=== PATIENT | male | born 1985 | race Caucasian/White ===

== ENCOUNTER 2018-02-28 05:11 | Emergency (ER) | payer BC ==
--- NOTE | 2018-02-28 06:13 | EDM.PDOC ---
ED HPI GENERAL MEDICAL PROBLEM - General Chief Complaint: Lower Extremity Injury/Pain Stated Complaint: SWOLLEN LEFT LEG Time Seen by Provider: 02/28/18 06:08 - History of Present Illness INITIAL COMMENTS - FREE TEXT/NARRATIVE: HISTORY AND PHYSICAL: History of present illness: Patient 32-year-old white male with history of chronic left knee pain who presents now with pain and swelling of his left knee but no fever no chills no other complaints. Review of systems: As per history of present illness and below otherwise all systems reviewed and negative. Past medical history: As per history of present illness and as reviewed below otherwise noncontributory. Surgical history: As per history of present illness and as reviewed below otherwise noncontributory. Social history: No reported history of drug or alcohol abuse. Family history: As per history of present illness and as reviewed below otherwise noncontributory. Physical exam: HEENT: Atraumatic, normocephalic, pupils reactive, negative for conjunctival pallor or scleral icterus, mucous membranes moist, throat clear, neck supple, nontender, trachea midline. Lungs: Clear to auscultation, breath sounds equal bilaterally, chest nontender. Heart: S1S2, regular, negative for clicks, rubs, or JVD. Abdomen: Soft, nondistended, nontender. Negative for masses or hepatosplenomegaly. Negative for costovertebral tenderness. Pelvis: Stable nontender. Genitourinary: Deferred. Rectal: Deferred. Extremities: Left knee is suprapatellar effusion noted joints grossly stable is no significant erythema no crepitation no point tenderness. Neuro: Awake, alert, oriented. Cranial nerves II through XII unremarkable. Cerebellum unremarkable. Motor and sensory unremarkable throughout. Exam nonfocal. Diagnostics: Chest x-ray left knee CBC uric acid Therapeutics: [place] wrap Impression: #1 left knee effusion Definitive disposition and diagnosis as appropriate pending reevaluation and review of above. left knee Pain Score (Numeric/FACES): 4 - Related Data Allergies Allergy/AdvReac Type Severity Reaction Status Date / Time No Known Allergies Allergy Verified 02/28/18 05:24 Home Meds: Home Meds . [No Known Home Meds] 02/28/18 [History] Past Medical History HEENT History: Reports: None Cardiovascular History: Reports: None Respiratory History: Reports: None Gastrointestinal History: Reports: None Genitourinary History: Reports: None Musculoskeletal History: Reports: Arthritis Neurological History: Reports: None Psychiatric History: Reports: None Endocrine/Metabolic History: Reports: None Hematologic History: Reports: None Oncologic (Cancer) History: Reports: None Dermatologic History: Reports: None - Infectious Disease History Infectious Disease History: Reports: None - Past Surgical History HEENT Surgical History: Reports: None Cardiovascular Surgical History: Reports: None Male Surgical History: Reports: None Musculoskeletal Surgical History: Reports: None Social & Family History - Family History Family Medical History: Noncontributory - Tobacco Use Smoking Status *Q: Current Every Day Smoker Years of Tobacco use: 7 Packs/Tins Daily: 1 - Recreational Drug Use Recreational Drug Use: No Review of Systems - Review of Systems Review Of Systems: ROS reveals no pertinent complaints other than HPI. ED EXAM, GENERAL - Physical Exam Exam: See Below (Dictation) Course - Vital Signs Last Recorded V/S: Last Vital Signs Temp 36.1 C 02/28/18 05:24 Pulse 80 02/28/18 05:24 Resp 16 02/28/18 05:24 BP 117/91 H 02/28/18 05:24 Pulse Ox 97 02/28/18 05:24 - Orders/Labs/Meds Orders: Active Orders 24 hr Category Date Time Status Knee 3V Lt [CR] Stat Exams 02/28/18 05:25 Taken URIC ACID [CHEM] Stat Lab 02/28/18 05:36 Received Labs: Laboratory Tests 02/28/18 Range/Units 05:36 WBC 8.36 (4.0-11.0) K/uL RBC 5.24 (4.50-5.90) M/uL Hgb 16.1 (13.0-17.0) g/dL Hct 45.7 (38.0-50.0) % MCV 87.2 (80.0-98.0) fL MCH 30.7 (27.0-32.0) pg MCHC 35.2 (31.0-37.0) g/dL RDW Std Deviation 40.2 (28.0-62.0) fl RDW Coeff of Merna 13 (11.0-15.0) % Plt Count 271 (150-400) K/uL MPV 9.20 (7.40-12.00) fL Neut % (Auto) 60.5 (48.0-80.0) % Lymph % (Auto) 29.8 (16.0-40.0) % Bates % (Auto) 8.0 (0.0-15.0) % Eos % (Auto) 1.3 (0.0-7.0) % Baso % (Auto) 0.4 (0.0-1.5) % Neut # (Auto) 5.1 (1.4-5.7) K/uL Lymph # (Auto) 2.5 H (0.6-2.4) K/uL Bates # (Auto) 0.7 (0.0-0.8) K/uL Eos # (Auto) 0.1 (0.0-0.7) K/uL Baso # (Auto) 0.0 (0.0-0.1) K/uL Nucleated RBC % 0.0 /100WBC Nucleated RBCs # 0 K/uL Departure - Departure Time of Disposition: 06:12 Disposition: Home, Self-Care 01 Condition: Good Clinical Impression: Knee effusion, left - Discharge Information Referrals: PCP,None [Primary Care Provider] - Additional Instructions: The following information is given to patients seen in the emergency department who are being discharged to home. This information is to outline your options for follow-up care. We provide all patients seen in our emergency department with a follow-up referral. The need for follow-up, as well as the timing and circumstances, are variable depending upon the specifics of your emergency department visit. If you don't have a primary care physician on staff, we will provide you with a referral. We always advise you to contact your personal physician following an emergency department visit to inform them of the circumstance of the visit and for follow-up with them and/or the need for any referrals to a consulting specialist. The emergency department will also refer you to a specialist when appropriate. This referral assures that you have the opportunity for followup care with a specialist. All of these measure are taken in an effort to provide you with optimal care, which includes your followup. Under all circumstances we always encourage you to contact your private physician who remains a resource for coordinating your care. When calling for followup care, please make the office aware that this follow-up is from your recent emergency room visit. If for any reason you are refused follow-up, please contact the [facility] emergency department at and asked to speak to the emergency department charge nurse. JOSE [facility] [address], [address] [place] [address] [place] wrap as directed Motrin/Tylenol as directed follow-up orthopedic clinic call to schedule appointment return as needed as discussed - My Orders Last 24 Hours: My Active Orders 02/28/18 05:25 Knee 3V Lt [CR] Stat 02/28/18 05:36 URIC ACID [CHEM] Stat - Assessment/Plan Last 24 Hours: My Active Orders 02/28/18 05:25 Knee 3V Lt [CR] Stat 02/28/18 05:36 URIC ACID [CHEM] Stat
--- NOTE | 2018-02-28 18:35 | CR ---
EXAM DATE: 02/28/18 PATIENT'S AGE: 32 Patient: MIKA MONROE Facility: [place], [place] Site . Site : 1985 Study: XRay Knee Left [id number]/30/2018 5:52:42 AM Ordering Physician: Doctor Candelario Final Report: Indication: Chronic left knee pain Technique: Three views of the left knee Comparison: None available Findings/Impression: Bones: A chronic appearing cortical deformity of the anterior aspect of the medial femoral condyle on the lateral view. An ovoid subcortical lucency in the central aspect of the medial femoral condyle concerning for an osteochondral lesion/SONK. No dislocation. Joint spaces: Narrowing of the medial compartment. A large suprapatellar effusion. Soft tissues: Corticated ossific densities adjacent to the medial aspect of the patella and distal femur, likely sequela of old trauma. Dictated by Ariel Buck MD @ 02/28/2018 6:04:41 AM Dictated by: Ariel Buck MD @ 02/28/2018 06:04:47 (Electronic Signature) Report Signed by Proxy. JARON
== END 2018-02-28 06:35 | disposition home or self-care (01) ==
LOC: MW.ED 05:11
DX: M25.462 Effusion, left knee (principal); F17.210 Nicotine dependence, cigarettes, uncomplicated
CPT/HCPCS: 36415; 73562-26-LT; 73562-LT; 84550; 85025; 99283; 99284

== ENCOUNTER 2020-09-23 07:18 | Emergency (ER) | payer BC ==
[2020-09-23] MEDS ORDERED: Alum Hydrox/Mag Hydrox/Simeth 15 ML, Lidocaine 2% 5 ML PO ONE ×4 (07:46→08:57)
--- NOTE | 2020-09-23 07:50 | EDM.PDOC ---
ED HPI GENERAL MEDICAL PROBLEM - General Chief Complaint: General Stated Complaint: TINGLING HANDS AND FACE Time Seen by Provider: 09/23/20 07:22 Source of Information: Reports: Patient History Limitations: Reports: No Limitations - History of Present Illness INITIAL COMMENTS - FREE TEXT/NARRATIVE: This is a very pleasant 35-year-old man with a past medical history of hypertension presenting with lightheadedness and complaints of tingling to the face and hands. He reports a 2-day history of tingling sensation to both cheeks and around the mouth and to the fingertips of both of his hands. He also reports a 2-day history of heartburn symptoms. Symptoms do not seem to be worsening. He took some antacid medication and Tums at work without much relief. At some point this morning, he felt lightheaded briefly while on the way to the hospital. The lightheadedness resolved and he is not having it at this moment. He denies any headache, neck pain, visual disturbance, neck stiffness, shortness of breath, slurred speech, facial drooping, gait difficulty, trouble swallowing, extremity numbness or weakness, or history of prior CVA or TIA. No symptoms in the lower extremities, no pattern of ascending neurologic changes. Patient takes no medications. No prior history of vitamin deficiency or electrolyte derangements. Denies melena, hematochezia, hematemesis, diarrhea, vomiting, or fever. Denies any abdominal pain. ROS: A 10-point review of systems was negative, except as noted in the HPI (or in the ROS section of this note). Past medical history: Reviewed, no additional pertinent history. Surgical history: Reviewed in system, no additional pertinent history. Social history: Reviewed in system, no additional pertinent history. Family history: Reviewed in system, no additional pertinent history. PHYSICAL EXAM Vital signs reviewed. Nursing notes reviewed. Constitutional: Awake, alert, non-distressed. Head: Normocephalic, atraumatic. Eyes: EOMI, conjunctiva normal, no discharge, no scleral icterus. Pupils 3 mm bilaterally. Neck: Supple, full range of motion. Ears, Nose, Throat: External ears and nose normal, moist oral mucosa. Cardiovascular: 2+ radial pulses bilaterally, capillary refill less than 2 seconds. Pulmonary: normal work of breathing, no accessory muscle use. Abdomen/GI: Soft, nontender, nondistended, no guarding or rigidity, no masses. Musculoskeletal: No deformities. Integumentary: Appropriate color for ethnicity, warm, dry, no pallor or jaundice , no rash. Neurologic: Awake, alert, and oriented x3. Cranial nerves II through XII intact. No facial droop or dysarthria. No temporal artery tenderness. Supple neck with normal range of motion. No pronator drift. Normal avebpm-ddte-znbdea and jiwn-nu-alem. No dysdiadochokinesia. 5/5 strength in all extremities. Sensation intact to light touch x4. Negative Romberg. Normal gait. Normal visual bennett, no field cuts. Able to sit, stand, and ambulate without assistance. Psychiatric: Appropriate mood and affect, normal thought process. - Related Data Allergies Allergy/AdvReac Type Severity Reaction Status Date / Time No Known Allergies Allergy Verified 09/23/20 07:33 Home Meds: Home Meds . [No Known Home Meds] 02/28/18 [History] Past Medical History HEENT History: Reports: None Cardiovascular History: Reports: None Respiratory History: Reports: None Gastrointestinal History: Reports: GERD Genitourinary History: Reports: None Musculoskeletal History: Reports: Arthritis Neurological History: Reports: None Psychiatric History: Reports: None Endocrine/Metabolic History: Reports: None Hematologic History: Reports: None Oncologic (Cancer) History: Reports: None Dermatologic History: Reports: None - Infectious Disease History Infectious Disease History: Reports: None - Past Surgical History HEENT Surgical History: Reports: None Cardiovascular Surgical History: Reports: None Male Surgical History: Reports: None Musculoskeletal Surgical History: Reports: None Social & Family History - Family History Family Medical History: Noncontributory - Tobacco Use Tobacco Use Status *Q: Current Every Day Tobacco User Years of Tobacco use: 10 Packs/Tins Daily: 1 - Recreational Drug Use Recreational Drug Use: No ED ROS GENERAL - Review of Systems Review Of Systems: See Below ED EXAM, GENERAL - Physical Exam Exam: See Below #1 Interpretation EKG Interpretation Comments: 12-Lead ECG Interpretation Acquired: 8:24 AM Rhythm: Sinus rhythm Rate: 61 bpm Monroe: Normal Intervals: Normal Ectopy: None RV Strain: No obvious RV strain pattern. ST Segments/T-Waves: No notable changes Acute Ischemic Changes: None apparent Interpretation: No STEMI Course - Vital Signs Text/Narrative:: 35-year-old male with a 2-day history of facial and hand numbness and tingling and heartburn. Patient hemodynamically stable, afebrile, well-appearing, looks nontoxic. Differential diagnosis includes but is not limited to: Electrolyte disturbance, vitamin deficiency, neuropathy, less likely CVA or TIA, less likely demyelinating disease, GERD, less likely PUD or pancreatitis or hepatitis, ACS, PE, atypical chest pain, etc. 7:50 AM: Ordered GI cocktail, EKG, labs. 8:42 AM: Twelve-lead EKG looks nonischemic. Patient is hemodynamically stable, mildly hypertensive. No arrhythmia or ectopy on telemetry. He is not anemic. Electrolyte panel looks reassuring. Troponin is negative. It sounds like he was very transiently lightheaded but did not come close to having an actual syncopal episode and the lightheadedness resolved prior to arrival. This happened only one time. I have low suspicion for cardiogenic syncope at this point. He does not look volume depleted. Heart score 0, nonischemic EKG, negative troponin. 8:58 AM: The paresthesias have resolved. Patient states that the burning sensation in his chest is resolved but he now relates a story of substernal chest pressure, onset around midnight tonight. Did not disclose this during initial interview. This chest pressure has been constant since midnight. Non- radiating, no diaphoresis or vomiting. No history of prior pressure like this in the past. Denies any shortness of breath, cough, or fever. I am going to obtain a chest x-ray. We will give him a second GI cocktail. 9:22 AM: Chest x-ray is clear. Patient has had 9 hours of substernal chest discomfort with a negative troponin and a nonischemic EKG. There is no objective evidence of myocardial ischemia. His paresthesias resolved after a GI cocktail. I have a low suspicion for pulmonary embolism at this point. He is not having any pleuritic chest pain or shortness of breath and is not tachycardic or hypoxic. Wells PE score 0, PERC negative. He describes a tingling/jewh-ymq-dznkhyj sensation of the fingertips but when I test his sensation, it seems to be intact to light touch so he is not actually having numbness/negative symptoms. It is possible this is a vitamin deficiency or an undiagnosed neuropathy. Symptoms are symmetric and went away with a GI cocktail. He has no lateralizing symptoms to suggest a CVA and I have a low suspicion for TIA given lack of negative symptoms. Low suspicion for demyelinating disease given the distribution, no description of ascending or progressing symptoms since the onset 2 days ago. Patient is afebrile and has no meningeal signs, low suspicion for meningitis or encephalitis. He felt better after GI cocktail, suspect GERD. Low suspicion for peptic ulcer disease, no symptoms to suggest a GI bleed. Abdomen is soft and nontender, nondistended. Etiology of the paresthesias is not entirely clear but there is no evidence of an acute medical emergency at this point. Chest pain work-up is also negative. I think we can plan to safely discharge the patient home and if symptoms persist we will have him follow-up with a neurologist. Recommended primary care follow- up for the chest discomfort. He states that he plans to go home to [place] in a few days and I instructed him to follow-up with either a family medicine clinic there or neurology clinic if the paresthesias do not resolve on their own. We also discussed further symptomatic treatment for GERD including a PPI and Maalox max or Tums. Plan: Patient is stable to discharge home with outpatient primary care and neurology clinic follow-up. Strict emergency department return precautions were provided, patient indicated understanding. All questions were answered prior to departure. Discharged in good condition. HEART Score for Major Cardiac Events RESULT SUMMARY: 1 points Low Score (0-3 points) Risk of MACE of 0.9-1.7%. INPUTS: History > 0 = Slightly suspicious EKG > 0 = Normal Age > 0 = <45 Risk factors > 1 = 1-2 risk factors Initial troponin > 0 = ?normal limit Wells' Criteria for Pulmonary Embolism RESULT SUMMARY: 0.0 points Low risk group: 1.3% chance of PE in an ED population. Another study assigned scores ? 4 as PE Unlikely and had a 3% incidence of PE. INPUTS: Clinical signs and symptoms of DVT > 0 = No PE is #1 diagnosis OR equally likely > 0 = No Heart rate > 100 > 0 = No Immobilization at least 3 days OR surgery in the previous 4 weeks > 0 = No Previous, objectively diagnosed PE or DVT > 0 = No Hemoptysis > 0 = No Malignancy w/ treatment within 6 months or palliative > 0 = No PERC Rule for Pulmonary Embolism RESULT SUMMARY: 0 criteria No need for further workup, as <2% chance of PE. If no criteria are positive and clinicians pre-test probability is <15%, PERC Rule criteria are satisfied. INPUTS: Age ?50 > 0 = No HR ?100 > 0 = No O? sat on room air > 0 = No Unilateral leg swelling > 0 = No Hemoptysis > 0 = No Recent surgery or trauma > 0 = No Prior PE or DVT > 0 = No Hormone use > 0 = No Last Recorded V/S: Last Vital Signs Temp 36.4 C 09/23/20 07:30 Pulse 68 09/23/20 07:30 Resp 16 09/23/20 07:30 BP 160/93 H 09/23/20 07:30 Pulse Ox 96 09/23/20 07:30 - Orders/Labs/Meds Orders: Active Orders 24 hr Category Date Time Status EKG Documentation Completion [RC] STAT Care 09/23/20 07:46 Active Labs: Laboratory Tests 09/23/20 09/23/20 Range/Units 07:56 07:56 WBC 6.25 (4.0-11.0) K/uL RBC 5.08 (4.50-5.90) M/uL Hgb 15.1 (13.0-17.0) g/dL Hct 44.2 (38.0-50.0) % MCV 87.0 (80.0-98.0) fL MCH 29.7 (27.0-32.0) pg MCHC 34.2 (31.0-37.0) g/dL RDW Std Deviation 41.2 (28.0-62.0) fl RDW Coeff of Merna 13 (11.0-15.0) % Plt Count 252 (150-400) K/uL MPV 9.20 (7.40-12.00) fL Neut % (Auto) 41.9 L (48.0-80.0) % Lymph % (Auto) 46.9 H (16.0-40.0) % Letcher % (Auto) 8.2 (0.0-15.0) % Eos % (Auto) 2.4 (0.0-7.0) % Baso % (Auto) 0.6 (0.0-1.5) % Neut # (Auto) 2.6 (1.4-5.7) K/uL Lymph # (Auto) 2.9 H (0.6-2.4) K/uL Letcher # (Auto) 0.5 (0.0-0.8) K/uL Eos # (Auto) 0.2 (0.0-0.7) K/uL Baso # (Auto) 0.0 (0.0-0.1) K/uL Nucleated RBC % 0.0 /100WBC Nucleated RBCs # 0 K/uL Sodium 138 (136-148) mmol/L Potassium 3.8 (3.5-5.1) mmol/L Chloride 103 (98-107) mmol/L Carbon Dioxide 28.8 (21.0-32.0) mmol/L BUN 11 (7.0-18.0) mg/dL Creatinine 1.0 (0.8-1.3) mg/dL Est Cr Clr Drug Dosing 109.81 mL/min Estimated GFR (MDRD) > 60.0 ml/min Glucose 101 (74-106) mg/dL Calcium 8.9 (8.5-10.1) mg/dL Troponin I < 0.050 (0.000-0.056) ng/mL Meds: Medications Discontinued Medications Generic Name Dose Route Start Last Admin Trade Name Freq PRN Reason Stop Dose Admin Al Hydroxide/Mg Hydroxide 15 0 ml 09/23/20 07:46 09/23/20 08:12 ml/ Lidocaine HCl 5 ml PO 09/23/20 07:47 1 each ONETIME ONE Administration Al Hydroxide/Mg Hydroxide 15 0 ml 09/23/20 08:57 09/23/20 09:06 ml/ Lidocaine HCl 5 ml PO 09/23/20 08:58 1 each ONETIME ONE Administration Departure - Departure Time of Disposition: 08:46 Disposition: Home, Self-Care 01 Condition: Good Clinical Impression: Paresthesias, Epigastric abdominal pain, Atypical chest pain - Discharge Information *PRESCRIPTION DRUG MONITORING PROGRAM REVIEWED*: Not Applicable *COPY OF PRESCRIPTION DRUG MONITORING REPORT IN PATIENT JACKELINE: Not Applicable Instructions: Paresthesia, Nonspecific Chest Pain, Adult, Pain Without a Known Cause Referrals: Alyssa Rosenthal MD [Physician] - 1 Week (For follow-up of tingling sensation) Forms: ED Department Discharge Additional Instructions: Please follow-up with a family medicine clinic or neurologist in [place] after you return home for further work-up of your numbness and tingling sensation if it does not go away. I would also like for you to follow-up with a family medicine clinic for further work-up and treatment of your chest pain. Your EKG, x-ray, and blood work look reassuring at this point. I see no sign of a heart attack. You have no signs or symptoms of a blood clot and there is no evidence of pneumonia. There are no strokelike symptoms from what I can tell. For your heartburn symptoms I recommend hzzc-vzo-qchxmju omeprazole, Maalox max, and Tums. You can take fljx-hvg-okyrozv Tylenol or Motrin for chest pain. Follow-up with your family doctor if your symptoms do not improve. Warning signs to come back to the ER include worsening chest pain, shortness of breath, vomiting blood or bloody bowel movements, drooping of the face, slurred speech, vision changes, severe headache or neck pain, arm or leg numbness or weakness, trouble walking or speaking, or any other new or concerning symptoms. Thank you for choosing the [facility] emergency department in [place] for your medical needs today. It was a pleasure caring for you. The following information is given to patients seen in the emergency department who are being discharged. This information is to outline your options for follow-up care. We provide all patients seen in our emergency department with a follow-up referral. The need for follow-up, as well as the timing and circumstances, are variable depending upon the specifics of your emergency department visit. If you don't have a primary care physician on staff, we will provide you with a referral. We always advise you to contact your personal physician following an emergency department visit to inform them of the circumstance of the visit and for follow-up with them and/or the need for any referrals to a consulting specialist. The emergency department will also refer you to a specialist when appropriate. This referral assures that you have the opportunity for follow-up care with a specialist. All of these measure are taken in an effort to provide you with optimal care, which includes your follow-up. Under all circumstances we always encourage you to contact your private physician who remains a resource for coordinating your care. When calling for follow-up care, please make the office aware that this follow-up is from your recent emergency room visit. If for any reason you are refused follow-up, please contact the [facility] Emergency Department at and asked to speak to the emergency department charge nurse. If you do not have a primary care physician that is caring for you, you can contact these clinics below to set up an appointment to establish care: [facility] [address] [place] [id number] [facility] [address] [place] [id number] Sepsis Event Note (ED) - Evaluation Sepsis Screening Result: No Definite Risk - Focused Exam Vital Signs: Vital Signs Temp Pulse Resp BP Pulse Ox 09/23/20 07:30 36.4 C 68 16 160/93 H 96 - My Orders Last 24 Hours: My Active Orders 09/23/20 07:46 EKG Documentation Completion [RC] STAT - Assessment/Plan Last 24 Hours: My Active Orders 09/23/20 07:46 EKG Documentation Completion [RC] STAT
[2020-09-23 08:28] LABS: BLOOD UREA NITROGEN,BUN 11 mg/dL (7.0-18.0); CARBON DIOXIDE,CO2 28.8 mmol/L (21.0-32.0); CHLORIDE,CL 103 mmol/L (98-107); GLUCOSE RANDOM 101 mg/dL (74-106); POTASSIUM,K 3.8 mmol/L (3.5-5.1); SODIUM,NA 138 mmol/L (136-148)
--- NOTE | 2020-09-23 09:20 | CR ---
INDICATION: Chest pain TECHNIQUE: Chest 1 view COMPARISON: None FINDINGS: Cardiovascular and mediastinum: Heart size and vasculature are normal in caliber and appearance. Lungs and pleural spaces: Lungs are clear. No sign of infiltrate or mass. No sign of pleural effusion. No pneumothorax. Bones and soft tissues: No significant findings. IMPRESSION: No acute or significant findings. Dictated by Binh Peres MD @ Sep 23 2020 9:18AM Signed by Dr. Binh Peres @ Sep 23 2020 9:19AM
== END 2020-09-23 09:40 | disposition home or self-care (01) ==
LOC: MW.ED 07:18
DX: R10.13 Epigastric pain (principal); R07.89 Other chest pain; R20.2 Paresthesia of skin; I10 Essential (primary) hypertension; F17.210 Nicotine dependence, cigarettes, uncomplicated
CPT/HCPCS: 36415; 71045; 80048; 84484; 85025; 93005; 99284; A9270; 93010